=== PATIENT | male | born 1985 | race Caucasian/White ===

== ENCOUNTER 2016-05-28 22:34 | Emergency (ER) | payer SELFPAY ==
[~2016-05-28] VITALS: Ht 170.2 cm; Wt 91.8 kg
[~2016-05-28 22:34] MED LIST: MOTRIN600 MG PO; PEN-VEE K,VEET500 MG PO; ULTRAM50 MG PO
[2016-05-28 22:53] LABS: HEMATOCRIT 49.6 % (38.0-50.0); MCH 29.4 PG (29.0-34.0); MCHC 34.1 G/DL (30.0-36.0); MCV 86.3 FL (86-99); RBC DIS.WIDTH-CV 13.2 % (11.8-14.6); RBC DIS.WIDTH-SD 41.5 % (39-53); RED BLOOD COUNT 5.75 M/uL (4.00-5.50); WHITE BLOOD COUNT 11.9 K/uL (4.1-10.2)
[2016-05-28 23:06] LABS: CHLORIDE 104 mEq/L (99-109); POTASSIUM 4.1 mEq/L (3.7-5.4); SODIUM 139 mEq/L (136-147)
[2016-05-28 23:08] LABS: GLUCOSE 101 mg/dL (70-99)
[2016-05-28 23:09] LABS: ANION GAP 11 MEQ/L (2-14)
[2016-05-28 23:12] LABS: GFR ESTIMATE (CALCULATED) > 59 mL/min/
[2016-05-28 23:13] LABS: UREA NITROGEN (BUN) 15 mg/dL (9-23)
[2016-05-28 23:58] LABS: MEAN PLAT.VOLUME 11.2 uM^3 (9.0-12.4); PLAT.SUFFICIENCY ADEQUATE; PLATELET COUNT 221 K/uL (156-360)
[2016-05-29 00:16] VITALS: BP 137/88
== END 2016-05-29 00:17 | disposition home or self-care (01) ==
LOC: EME 22:34
DX: K62.5 Hemorrhage of anus and rectum (principal); F17.200 Nicotine dependence, unspecified, uncomplicated
CPT/HCPCS: 80048; 85027; 99281; 99283

== ENCOUNTER 2017-01-11 14:30 | Emergency (ER) | payer OTHER ==
[~2017-01-11] VITALS: Ht 170.2 cm; Wt 100.5 kg
[2017-01-11 14:56] LABS: HEMATOCRIT 48.3 % (38.0-50.0); MCH 31.1 PG (29.0-34.0); MCHC 35.2 G/DL (30.0-36.0); MCV 88.3 FL (86-99); RBC DIS.WIDTH-SD 42.3 % (39-53); RED BLOOD COUNT 5.47 M/uL (4.00-5.50); WHITE BLOOD COUNT 7.4 K/uL (4.1-10.2)
[2017-01-11 15:05] LABS: CHLORIDE 109 mEq/L (99-109); POTASSIUM 3.9 mEq/L (3.7-5.4); SODIUM 141 mEq/L (136-147)
[2017-01-11 15:07] LABS: GLUCOSE 127 mg/dL (70-99)
[2017-01-11 15:09] LABS: ANION GAP 8 MEQ/L (2-14)
[2017-01-11 15:11] LABS: GFR ESTIMATE (CALCULATED) > 59 mL/min/
[2017-01-11 15:12] LABS: UREA NITROGEN (BUN) 15 mg/dL (9-23)
[2017-01-11 15:13] LABS: D-DIMER ELISA < 150.00 ng/mLDDU (<230)
[2017-01-11 15:20] LABS: TROP-I INTERPRETATION NEGATIVE; TROPONIN-I < 0.01 ng/mL (0.0-0.30)
[2017-01-11 15:27] LABS: MEAN PLAT.VOLUME 12.2 uM^3 (9.0-12.4); PLAT.SUFFICIENCY DECREASED; PLATELET COUNT 174 K/uL (156-360)
[2017-01-11 15:48] VITALS: BP 142/100
== END 2017-01-11 15:48 | disposition home or self-care (01) ==
LOC: EME 14:30
PROVIDERS: Emergency Medicine
DX: R07.9 Chest pain, unspecified (principal); F17.200 Nicotine dependence, unspecified, uncomplicated
CPT/HCPCS: 71020; 80048; 84484; 85027; 85379; 93005; 99281; 99284